=== PATIENT | female | born 1990 | race Caucasian/White ===

== ENCOUNTER 2016-12-18 06:10 | Emergency (ER) | payer SELFPAY ==
[~2016-12-18 06:10] MED LIST: AMOX875T PO; PERC5TAB12 PO
[2016-12-18 06:12] VITALS: BP 150/84; PULSE 53; RESP 16; TEMP 97.9; O2SAT 99
[2016-12-18] MEDS ORDERED: AMOX500T PO (06:23)
[2016-12-18] MEDS ORDERED: DICL50TA3 PO (06:23)
--- NOTE | 2016-12-18 06:27 | PD ---
HPI Chief Complaint: Oral / Dental Pain or Problem Time Seen by Provider: 06:24 Travel History International Travel<30 days: No Contact w/Intl Traveler<30days: No Traveled to known affect area: No History of Present Illness HPI 26-year-old white female presents to emergency department complains of dental pain. She states that she has had several teeth requiring intervention. The last 3 days she's had increasing pain in her right upper or right lower jaw. She claims that she has an appointment with a dentist next week. Denies any fever or chills. No ear pain, sore throat, cough or congestion. PFSH Past Medical History Medical History: Denies Significant Hx Tetanus Vaccination: < 5 Years ?: Not Past Surgical History Surgical History: No Previous Surgery Social History Alcohol Use: Yes Tobacco Use: Yes (2 cigarettes a day) Substance Use: No Allergies-Medications (Allergen,Severity, Reaction): Coded Allergies: No Known Allergies (Unverified , 12/18/16) Reported Meds & Prescriptions Reported Meds & Active Scripts Active Diclofenac Sodium DR (Diclofenac Sodium) 50 Mg Tabdr 50 Mg PO TID Amoxicillin 500 Mg Tab 1,000 Mg PO BID Review of Systems Except as stated in HPI: all other systems reviewed are Neg Physical Exam Narrative GENERAL: This is a well-nourished, well-developed patient, in no apparent distress. SKIN: No rashes, ecchymoses or lesions. Warm and dry. HEAD: Atraumatic. Normocephalic. EYES: PERRL, EOMI, no discharge or injection. No scleral icterus. EARS: Clear NOSE: Nasal turbinates appear normal. THROAT: Mucosa pink and moist. Airway patent. Patient has diffuse periodontal disease with multiple dental caries. She points to her right upper or lower maxilla as a source of her pain. No facial swelling. No cellulitis. NECK: Trachea midline. supple, moves head freely. LUNGS: Clear to auscultation. CV: Regular in rhythm. ABDOMEN: Soft nontender. EXT: No clubbing cyanosis or edema. Data Data Last Documented VS Vital Signs Date Time Temp Pulse Resp B/P Pulse Ox O2 Delivery O2 Flow Rate FiO2 12/18/16 06:12 97.9 53 16 150/84 99 Room Air Orders Amoxicillin (Trimox) (12/18/16 06:30) Acetamin-Hydrocod 325-5 Mg ([place] 5-325 (12/18/16 06:30) MDM Medical Decision Making Medical Screen Exam Complete: Yes Emergency Medical Condition: Yes Medical Record Reviewed: Yes Differential Diagnosis MDM: Moderate Differential diagnoses: Dental abscess, dental caries, osteitis, cellulitis Narrative Course Patient's given amoxicillin 1 g and Lortab 5 mg by mouth. This is dental caries, dentalgia Diagnosis Primary Impression: Dental caries Additional Impression: Dentalgia Patient Instructions: Narcotic given in the ED, General Instructions Additional Instructions: Rest. Saltwater gargles. [place] oil on cotton balls. Amoxicillin and diclofenac. follow-up with a dentist as soon as possible. And return to the ER if any problems. Med/Other Pt SpecificInfo: Prescription(s) given Scripts Diclofenac Sodium DR 50 Mg Tabdr50 Mg PO TID #21 TAB Prov:Harleen Raymond MD 12/18/16 Amoxicillin 500 Mg Tab1,000 Mg PO BID #40 TAB Prov:Harleen Raymond MD 12/18/16 Disposition: 01 DISCHARGE HOME Condition: Stable Sam Crooks Dec 18, 2016 06:26
[2016-12-18] MEDS ORDERED: AMOXICILLIN (TRIHYDRATE) 500 MG CAP PO ONE (06:30)
[2016-12-18] MEDS ORDERED: ACETAMINOPHEN/HYDROcodone 325 MG/5 MG TAB PO ONE (06:30)
== END 2016-12-18 06:39 | disposition home or self-care (01) ==
LOC: NEPD 06:10
DX: K02.9 Dental caries, unspecified (principal); F17.210 Nicotine dependence, cigarettes, uncomplicated
CPT/HCPCS: 99284

== ENCOUNTER 2017-05-27 20:02 | Emergency (ER) | payer SELFPAY ==
[~2017-05-27 20:02] MED LIST changes: +AMOX500T PO; -AMOX875T PO; +DICL50TA3 PO; -PERC5TAB12 PO
[2017-05-27 20:03] VITALS: BP 148/58; PULSE 93; RESP 16; TEMP 98.1; O2SAT 97
--- NOTE | 2017-05-27 21:02 | RADRPT ---
EXAM DATE/TIME: 05/27/2017 20:47 [facility] COMPARISON: No previous studies available for comparison. INDICATIONS : Cough MEDICAL HISTORY : None. SURGICAL HISTORY : None. ENCOUNTER: Initial ACUITY: 3 weeks PAIN SCORE: 2/10 LOCATION: Bilateral chest FINDINGS: PA and lateral views of the chest demonstrate the lungs to be symmetrically aerated without evidence of mass, infiltrate or effusion. The cardiomediastinal contours are unremarkable. Osseous structure s are intact. CONCLUSION: Normal examination. Cristian Terry MD on May 27, 2017 at 20:59 Board Certified Radiologist. This report was verified electronically.
[2017-05-28] MEDS ORDERED: ZITHTAB PO (00:41)
[2017-05-28] MEDS ORDERED: ALBU6.7H INH (00:41)
[2017-05-28] MEDS ORDERED: AZITHROMYCIN 250 MG TAB PO ONE (00:45)
--- NOTE | 2017-05-28 00:45 | PD ---
HPI Chief Complaint: Cold / Flu Symptoms Time Seen by Provider: 00:24 Travel History International Travel<30 days: No Contact w/Intl Traveler<30days: No Traveled to known affect area: No History of Present Illness HPI 26-year-old white female presents to emergency department with complaints of coughing congestion now for the last 2 or 3 weeks. She states that she has had intermittent fever and chills, cough, congestion, left ear pain, and general malaise. She been using [id number] medications without relief. She denies any nausea vomiting. No abdominal pain or diarrhea. No dysuria or frequency. Symptoms are moderate. Worse with cough. PFSH Past Medical History Medical History: Denies Significant Hx Tetanus Vaccination: < 5 Years ?: Unknown LMP: irregular Past Surgical History Surgical History: No Previous Surgery Social History Alcohol Use: Yes Tobacco Use: Yes (2 cigarettes a day) Substance Use: No Allergies-Medications (Allergen,Severity, Reaction): Coded Allergies: No Known Allergies (Unverified , 12/18/16) Reported Meds & Prescriptions Reported Meds & Active Scripts Active Proventil Hfa 6.7 GM Inh (Albuterol Sulfate) 90 Mcg/Act Aer 2 Puff INH Q6H PRN Zithromax Z-Edmundo (Azithromycin) 250 Mg Dspk 250 Mg PO DIRECTED 500 MG (2 tabs) day 1, then 1 tab days 2-5. Diclofenac Sodium DR (Diclofenac Sodium) 50 Mg Tabdr 50 Mg PO TID Amoxicillin 500 Mg Tab 1,000 Mg PO BID Review of Systems Except as stated in HPI: all other systems reviewed are Neg Physical Exam Narrative GENERAL: Well-developed, well-nourished in no acute distress. Nontoxic appearing. HEAD: Normocephalic, atraumatic. EYES: Pupils equal round and reactive. Extraocular motions intact. No scleral icterus. No injection or drainage. ENT: TMs clear without erythema. The external auditory canals clear. Nose: clear . Posterior pharynx is pink and moist. No tonsillar edema or exudate. Uvula midline. Airway patent. NECK: Trachea midline.Supple, nontender, moves head freely. No central bony tenderness or spasm. CARDIOVASCULAR: Regular rate and rhythm without murmurs, gallops, or rubs. RESPIRATORY: Clear to auscultation. Breath sounds equal bilaterally. No wheezes , rales, or rhonchi. GASTROINTESTINAL: Abdomen soft, non-tender, nondistended. No hepato-splenomegaly , or palpable masses. No guarding. EXTREMITIES: No clubbing, cyanosis, or edema. No joint tenderness, effusion, or edema noted. BACK: Nontender without deformity or crepitance. No flank tenderness. Data Data Last Documented VS Vital Signs Date Time Temp Pulse Resp B/P (MAP) Pulse Ox O2 Delivery O2 Flow Rate FiO2 05/27/17 20:03 98.1 93 16 148/58 (88) 97 Room Air Orders Orders Chest, Pa & Lat (05/27/17 ) Ed Discharge Order (05/28/17 00:40) Azithromycin (Zithromax) (05/28/17 00:45) MDM Medical Decision Making Medical Screen Exam Complete: Yes Emergency Medical Condition: Yes Medical Record Reviewed: Yes Interpretation(s) Last 24 hours Impressions Chest X-Ray 05/27/17 0000 Signed Impressions: Service Date/Time: Saturday, May 27, 2017 20:47 - CONCLUSION: Normal examination. Cristian Terry MD Differential Diagnosis MDM: High Differential diagnoses: Pneumonia, bronchitis, URI, asthma, RAD, legionnaire's disease, SARS, ARDS, influenza, bronchiolitis, RSV,PE,CHF Narrative Course Patient's x-ray is negative for infiltrate. Patient given Zithromax 500 mg by mouth. This bronchitis Diagnosis Primary Impression: bronchitis Patient Instructions: General Instructions Additional Instructions: Rest. Increase fluids. Tylenol and Advil. Robitussin-DM. Zithromax, and albuterol. Followup with your DrShani in one week. Return to the ER for any problems. Med/Other Pt SpecificInfo: Prescription(s) given Scripts Albuterol 6.7 GM Inh (Proventil Hfa 6.7 GM Inh) 90 Mcg/Act Aer 2 PUFF INH Q6H Y for SHORTNESS OF BREATH, #1 INHALER 0 Refills Prov: Dave Torre MD 05/28/17 Azithromycin (Zithromax Z-Edmundo) 250 Mg Dspk 250 MG PO DIRECTED for Infection, #1 DSPK 0 Refills 500 MG (2 tabs) day 1, then 1 tab days 2-5. Prov: Dave Torre MD 05/28/17 Disposition: 01 DISCHARGE HOME Condition: Stable Keelen,Sam T. PA May 28, 2017 00:45
== END 2017-05-28 00:54 | disposition home or self-care (01) ==
LOC: NEPD 20:02
DX: J40 Bronchitis, not specified as acute or chronic (principal); F17.210 Nicotine dependence, cigarettes, uncomplicated
CPT/HCPCS: 71046; 99284